=== PATIENT | male | born 1985 | race Caucasian/White ===

== ENCOUNTER 2017-12-19 17:22 | Emergency (ER) | payer OTHER ==
[~2017-12-19] VITALS: Ht 165.1 cm; Wt 82.7 kg
[2017-12-19] MEDS ORDERED: ONDANSETRON 2MG/ML, 2ML ONE (18:07)
[2017-12-19 18:15] LABS: BASOPHILS # (AUTO) 0.06 x10^3/uL (0-0.1); BASOPHILS % (AUTO) 0 % (0-1); EOSINOPHILS # (AUTO) 0.09 x10^3/uL (0-0.4); EOSINOPHILS % (AUTO) 1 % (1-7); LYMPHOCYTES # (AUTO) 2.11 x10^3/uL (1-3.4); LYMPHOCYTES % (AUTO) 16 % (22-44); MD NO; MEAN CORPUSCULAR HEMOGLOBIN 29.4 pg (27.5-34.5); MEAN CORPUSCULAR HGB CONC 33.2 g/dL (33.2-36.2); MEAN CORPUSCULAR VOLUME 88.4 fL (81-97); MEAN PLATELET VOLUME 7.8 fL (7.4-10.4); MONOCYTES # (AUTO) 0.67 x10^3/uL (0.2-0.8); MONOCYTES % (AUTO) 5 % (2-9); NEUTROPHILS # (AUTO) 10.56 x10^3/uL (1.8-6.8); NEUTROPHILS % (AUTO) 78 % (42-75); PLATELET COUNT 335 x10^3/uL (130-400); RED BLOOD COUNT 5.58 x10^6/uL (4.38-5.82); RED CELL DISTRIBUTION WIDTH 13.8 % (9.4-14.8)
[2017-12-19 18:24] LABS: ALANINE AMINOTRANSFERASE 39 U/L (12-78); ALBUMIN 3.7 g/dL (3.4-5.0); ANION GAP 9 mmol/L (5-15); CALCIUM 8.5 mg/dL (8.5-10.1); CHLORIDE 107 mmol/L (98-107); CREATININE 1.24 mg/dL (0.7-1.3)
[2017-12-19 18:26] LABS: ALKALINE PHOSPHATASE 84 U/L (45-117); BILIRUBIN,TOTAL 0.3 mg/dL (0.2-1.0); TOTAL PROTEIN 7.6 g/dL (6.4-8.2)
[2017-12-19] MEDS ORDERED: SODIUM CHLORIDE FLUSH 10ML SYR IVF ONE (19:00)
[2017-12-19] MEDS ORDERED: ONDANSETRON 2MG/ML, 2ML IVPush ONE (19:00)
[2017-12-19] MEDS ORDERED: KETOROLAC 30 MG/1 ML ONE (19:26)
[2017-12-19] MEDS ORDERED: HYDROmorphone 2 MG/ML, 1ML ONE ×2 (19:26→20:01)
[2017-12-19] MEDS: HYDROmorphone 1 MG/ML, 1ML IVPush PRN ×2 (19:28→20:42)
[2017-12-19] MEDS ORDERED: KETOROLAC 30 MG/1 ML IVPush ONE (19:30)
[2017-12-19 20:22] LABS: MICROSCOPIC INDICATED
[2017-12-19 20:25] LABS: CULTURE INDICATED? YES
[2017-12-19 21:32] VITALS: BP 120/88
== END 2017-12-19 22:02 | disposition home or self-care (01) ==
LOC: ED 20:12
DX: N13.2 Hydronephrosis with renal and ureteral calculous obstruction (principal); Z87.442 Personal history of urinary calculi
CPT/HCPCS: 36415; 74176; 80053; 81001; 85025; 87086; 96374; 96375; 96376; 99285; J1170; J1885; J2405

== ENCOUNTER 2018-03-20 21:34 | Emergency (ER) | payer SELFPAY ==
[~2018-03-20] VITALS: Ht 165.1 cm; Wt 81.8 kg
[2018-03-20 21:41] VITALS: BP 126/85
[2018-03-20] MEDS ORDERED: CEFTRIAXONE 250 MG ONE (22:28)
[2018-03-20] MEDS ORDERED: AZITHROMYCIN 250 MG TABLET ONE (22:28)
[2018-03-20] MEDS ORDERED: LIDOCAINE-MPF 1%, 5ML ONE (22:28)
[2018-03-20] MEDS ORDERED: CEFTRIAXONE 250 MG IM ONE (22:30)
[2018-03-20] MEDS ORDERED: AZITHROMYCIN 500 MG TABLET PO ONE (22:30)
[2018-03-20 23:30] LABS: CULTURE INDICATED? YES; MICROSCOPIC INDICATED
== END 2018-03-21 00:16 | disposition home or self-care (01) ==
LOC: ED 03-21 00:10
DX: N45.1 Epididymitis (principal); N30.90 Cystitis, unspecified without hematuria; A56.01 Chlamydial cystitis and urethritis; N43.3 Hydrocele, unspecified; F17.200 Nicotine dependence, unspecified, uncomplicated
CPT/HCPCS: 76870; 81001; 87086; 87491; 87591; 96372; 99285; J0696